=== PATIENT | male | born 1960 | race Caucasian/White ===

== ENCOUNTER 2023-02-01 03:47 | Day surgery (SDC) | payer OTHER, SELFPAY ==
[2023-01-21 14:58] VITALS: BMI 23.4
[2023-02-01 10:07] VITALS: BP 129/81; PULSE 81; RESP 18; TEMP 36.4; O2SAT 99
[2023-02-01] MEDS: LACTATED RINGERS 1,000 ML 150 ML IV CONT (10:17)
--- NOTE | 2023-02-01 10:21 | WPDANESEPPF ---
Anes - Initial Pre Proc Eval Procedure: Operation Date: 02/01/23 10:30 Proposed Procedures p Screening Colonoscopy - Bhupinder Harper MD Date/Time: 02/01/23 10:21 Surgeon: Bhupinder Harper MD Pre Op Diagnosis: hx colon polyps Patient Data Age: 62 Gender: M Height: 1.73 m Weight: 69.1 kg Last Vital Signs Temp 97.5 F L 02/01/23 10:07 Pulse 81 02/01/23 10:07 Resp 18 02/01/23 10:07 BP 129/81 02/01/23 10:07 Pulse Ox 99 02/01/23 10:07 O2 Del Method Room Air 02/01/23 10:07 Allergies Allergy/AdvReac Type Severity Reaction Status Date / Time penicillin G Allergy Unknown RASH Verified 02/01/23 10:06 Sulfa (Sulfonamide Allergy Unknown Unknown Verified 02/01/23 10:06 Antibiotics) Patient hx anesthesia problems: none Family hx anesthesia problems: none Results Review: All pre-operative results and documents have been reviewed as part of the pre-operative evaluation. [facility] Past Medical History Medical History (Updated 04/11/22 @ 09:51 by Cabrera Shafer MD) Annual physical exam Bilateral otitis externa Bilateral otitis media Colonoscopy planned Osteoarth NOS-ankle Family History Family History Sibling Family history of malignant neoplasm of breast in first degree relative Mother Family history of heart disease in male family member before age 55 Other Hypertension Social History Social History Years smoked: 40 Smoking status: Current every day smoker Tobacco type: cigarettes Alcohol intake: current Drinks per week: 6 Living arrangements: with family Spiritual care concerns: No Anes - Eval Final PreProcedure Day of Procedure 02/01/23 10:21 Patient weight: normal Heart: regular rate and rhythm Lungs: clear to auscultation Airway: Mallampati scale class II Neurological: alert and oriented Last oral intake: >/= 8 hours ASA classification: II Emergent: no Anesthetic plan: proceed Anesthesia type and monitoring: general GIVS and standard monitoring Results Review: All pre-operative results and documents have been reviewed as part of the pre-operative evaluation. Informed Consent: The patient's anesthetic plan and its attendant risks and benefits were discussed with the patient/family/POA. Questions were solicited and answers provided to the satisfaction of the patient/family/POA.
--- NOTE | 2023-02-01 10:27 | P.HP_ITS ---
History of Present Illness History of Present Illness Consent: Risks, benefits, and alternatives have been discussed and questions answered. Patient agrees to proceed with procedure. Chief complaint: hx colon polyps Narrative: Luciano Hillman is a 62 year old male Presents for screening colonoscopy. Patient's current weight appetite and bowel movements are normal. Patient denies abdominal pain. He has had no bleeding. Family history noncontributory. Patient was found have a benign tubular adenomatous polyp at the time of last colonoscopy 2018. Review of Systems Review of Systems: Review of systems noncontributory. [facility] Past Medical History Medical History (Updated 02/01/23 @ 10:29 by Bhupinder Harper MD) Annual physical exam Bilateral otitis externa Bilateral otitis media Colonoscopy planned Osteoarth NOS-ankle Family History Family History Sibling Family history of malignant neoplasm of breast in first degree relative Mother Family history of heart disease in male family member before age 55 Other Hypertension Social History Social History Years smoked: 40 Smoking status: Current every day smoker Tobacco type: cigarettes Alcohol intake: current Drinks per week: 6 Living arrangements: with family Spiritual care concerns: No Meds Home Medications and Allergies Allergies Allergy/AdvReac Type Severity Reaction Status Date / Time penicillin G Allergy Unknown RASH Verified 02/01/23 10:06 Sulfa (Sulfonamide Allergy Unknown Unknown Verified 02/01/23 10:06 Antibiotics) Vital Signs Vital Signs - 24 hr 02/01/23 10:07 Temperature 97.5 F L Pulse Rate 81 Respiratory Rate 18 Blood Pressure 129/81 Pulse Oximetry 99 Oxygen Delivery Room Air Exam Narrative: Physical exam reveals patient to be alert. Vital signs stable. HEENT exam is unremarkable. Patient is anicteric. Lungs are clear to auscultation and percussion. Heart is without murmur or extra sounds. Abdomen bowel sounds are present soft nontender with no organomegaly. Digital external rectal exam is normal. Assessment and Plan Assessment and plan (1) History of colon polyps: Code(s): Z86.010 - Personal history of colonic polyps Status: Acute Assessment and Plan: Patient has a history of benign adenomatous colon polyp removed from the colon in 2018. Plan for surveillance colonoscopy now consider this at 5 year intervals in the future.
[2023-02-01 10:47] VITALS: BP 107/75; PULSE 96; RESP 18; O2SAT 96
[2023-02-01 10:57] VITALS: BP 122/82; PULSE 73; RESP 18; O2SAT 99
[2023-02-01 11:07] VITALS: BP 115/79; PULSE 68; RESP 18; O2SAT 99
== END 2023-02-01 11:12 | disposition home or self-care (01) ==
PROVIDERS: PCP Family Medicine; Visit Provider Internal Medicine Gastroenterology
PROC: 0DJD8ZZ Inspection of Lower Intestinal Tract, Via Natural or Artificial Opening Endoscopic (ICD-10-PCS; CPT 45378; principal; 2023-02-01 10:30)
DX: Z12.11 Encounter for screening for malignant neoplasm of colon (principal); K64.8 Other hemorrhoids; K57.30 Diverticulosis of large intestine without perforation or abscess without bleeding; Z86.010 Personal history of colon polyps; F17.210 Nicotine dependence, cigarettes, uncomplicated
CPT/HCPCS: 45378; J2704; J7120